=== PATIENT | female | born 1995 | race African-American/Black ===

== ENCOUNTER 2016-12-16 14:40 | Observation (INO) | payer OTHER ==
[~2016-12-16] VITALS: Ht 33 cm; Wt 0.5 kg
[~2016-12-16 14:40] MED LIST: DENIES TAKING MEDS
[2016-12-16 15:32] LABS: Urine RBC None Seen /hpf (0 - 4)
[2016-12-16 16:00] LABS: Urine Bilirubin Negative (Negative); Urine Blood Negative /uL (Negative); Urine Color Yellow (Yellow); Urine Glucose Normal (Normal); Urine Mucus FEW (None Seen); Urine Nitrite Negative (Negative); Urine Squamous Epithelial Cell MANY /hpf (<5)
[2016-12-16 16:06] LABS: Urine Ketone 3+ (Negative)
[2016-12-16] MEDS ORDERED: cefTRIAXone 1GM/50ML D5W 50 ML IV ONE (16:15)
[2016-12-16] MEDS ORDERED: SODIUM CHLORIDE 0.9% 1,000 ML IV ONE ×2 (16:15)
[2016-12-16] MEDS ORDERED: ONDANSETRON HCL 4 MG/2 ML VIAL IV PRN (16:15)
== END 2016-12-16 19:26 | disposition home or self-care (01) | DRG 781 ==
LOC: LDRP 14:40
PROVIDERS: ADMIT Specialist; ATTEND Specialist
DX: O99.283 Endocrine, nutritional and metabolic diseases complicating pregnancy, third trimester (principal); E86.0 Dehydration; O23.43 Unspecified infection of urinary tract in pregnancy, third trimester; Z3A.29 29 weeks gestation of pregnancy
CPT/HCPCS: 59025; 80307; 81001; 81002; 96361; 96365; G0378; J0696; J7030

== ENCOUNTER 2017-02-26 01:48 | Observation (INO) | payer OTHER ==
[2017-02-26] MEDS ORDERED: PREN-153 OR (03:38)
[2017-02-26] MEDS ORDERED: FERR18TA2 PO (03:40)
== END 2017-02-26 03:34 | disposition home or self-care (01) | DRG 782 ==
LOC: LDRP 01:48
PROVIDERS: ADMIT Obstetrics & Gynecology; ATTEND Obstetrics & Gynecology
DX: O62.9 Abnormality of forces of labor, unspecified (principal); Z3A.40 40 weeks gestation of pregnancy
CPT/HCPCS: 59025; 76818; 80307; 81002; G0378

== ENCOUNTER 2018-03-04 22:37 | Emergency (ER) | payer OTHER ==
[~2018-03-04] VITALS: Ht 170.2 cm; Wt 59.0 kg
[~2018-03-04 22:37] MED LIST changes: +FERR18TA2 PO; +PREN-153 OR
[2018-03-04 23:59] VITALS: BP 113/82
[2018-03-05] MEDS ORDERED: IBUPROFEN 600 MG TAB PO ONE (01:15)
[2018-03-05] MEDS ORDERED: ACETAMINOPHEN/CODEINE#3 (300/30mg) TAB PO ONE (01:15)
== END 2018-03-05 01:43 | disposition home or self-care (01) ==
LOC: EDUNIT# 22:37 → EDBD 22:37 → ER 22:45
DX: S93.401A Sprain of unspecified ligament of right ankle, initial encounter (principal); X58.XXXA Exposure to other specified factors, initial encounter; Y93.89 Activity, other specified; Y99.8 Other external cause status; Y92.89 Other specified places as the place of occurrence of the external cause
CPT/HCPCS: 73610